=== PATIENT | male | born 1955 | race African-American/Black ===

== ENCOUNTER 2022-03-13 10:07 | Emergency (ER) | payer OTHER, SELFPAY ==
--- NOTE | 2022-03-13 | ECG_ITS ---
Test Reason : Chest Pain Blood Pressure : / mmHG Vent. Rate : 067 BPM Atrial Rate : 067 BPM P-R Int : 164 ms QRS Dur : 072 ms QT Int : 356 ms P-R-T Axes : 084 077 083 degrees QTc Int : 376 ms Normal sinus rhythm with sinus arrhythmia Normal ECG No previous ECGs available Referred By: Generic ED Physician Electronically Signed By:RAMBO LANDERS MD
--- NOTE | ~2022-03-13 | CT_ITS ---
EXAMINATION: CT CHEST WITHOUT CONTRAST CLINICAL INFORMATION: Abnormal chest x-ray. COMPARISON: Chest x-ray 03/13/2022. TECHNIQUE: Multidetector volumetric CT imaging of the chest was done. Axial MIP volume rendering provided. Sagittal and coronal reformatted images were obtained. This CT examination was performed using dose optimization techniques as appropriate, variously including the following: *Automated exposure control *Adjustment of mA and/or kV according to patient size (this includes techniques or standardized protocols for targeted exams where dose is matched to indication/reason for exam; i.e. extremities or head) *Use of iterative reconstruction technique DLP: 319 mGy-cm FINDINGS: SUPERVISOR REMELT: Well-expanded lungs with the right suprahilar hyperdense lesion/lymph nodes LUNGS: The lungs are well-expanded and clear of acute pneumonic process. There are no pulmonary nodules, mass or consolidation. There is a punctate 1 mm calcification right lower lobe axial image 324/9. No additional pulmonary nodules visualized. MEDIASTINUM: There are calcified suprahilar and hilar mediastinal lymph nodes. The largest suprahilar lymph node measures 3.73 cm on coronal image 37/6 and a 3 cm calcified lymph node right para-aortic axial image 30/6. No abnormal size noncalcified lymph nodes seen. Central trachea and the bronchi widely patent. The thyroid lobes are symmetrical. Heart size and the great vessels are normal caliber. No pericardial effusion seen. CORONARY ARTERY CALCIFICATION: There is mild coronary artery calcifications. PLEURA: There is no pleural effusion. No pleural mass or thickening. AXILLA: No abnormal size axillary lymph nodes seen. The chest wall is unremarkable. UPPER ABDOMEN: There is punctate calcification along the right hemidiaphragm. Otherwise liver, spleen, adrenal glands, pancreas appears unremarkable. There are punctate calcifications in the liver. There is a hypodense 2.2 cm cyst upper pole right kidney OSSEOUS STRUCTURES: No aggressive lytic or sclerotic process seen. CT/CT chest wo IV con IMPRESSION: 1. Calcified right suprahilar and mediastinal lymph nodes likely secondary to old granulomatous disease. 2. Punctate calcification right lower lobe and right hemidiaphragm. 3. No pulmonary nodule, mass or consolidation. 4. Mild coronary artery calcifications. 5. Right renal cyst. Fleischner guidelines were followed.
--- NOTE | ~2022-03-13 | XR_ITS ---
EXAMINATION: XR CHEST CLINICAL INFORMATION: Chest pain COMPARISON: None TECHNIQUE: Frontal view of the chest was obtained. FINDINGS: The lungs are well-expanded and clear of acute process. Heart size and pulmonary vascularity is normal. There are prominent hyperdense lymph nodes/lesion in the right para-aortic/mediastinal region. Is no gross bony abnormality seen. XR/XR chest 1V IMPRESSION: 1. No acute cardiopulmonary process seen. 2. Hyperdense lymph nodes/lesion in the right para-aortic/mediastinal region.
[2022-03-13 10:08] VITALS: BP 143/83; PULSE 88; RESP 16; TEMP 36.8; O2SAT 98; BMI 24.8
--- NOTE | 2022-03-13 10:41 | PC.NURSE ---
Patient AOx 4 neuros intact speaks in clear voice no slurring of words nfacial droop [place] with purpose no drift noted. Reports ongoing chest pain worse with movement. Patient reports chronic SOB. MD at bedside IV access and labs obtained . Patient placed on program officer, NSR. LS clear patient smokes daily 2-3 cigarettes will CTM
--- NOTE | 2022-03-13 10:44 | ED_ITS ---
HPI - Chest Pain General Chief Complaint: Chest Pain Stated Complaint: chest pain Time Seen by Provider: 03/13/22 10:28 Source: patient and family Mode of arrival: ambulatory Limitations: no limitations History of Present Illness HPI narrative: 66-year-old male came in for evaluation of chest pain that started 3 weeks ago. Started about 3 weeks ago with stabbing sharp pain to the left side of the chest now the pain moved to the right side of the chest pain started as intermittent severe pain 10/10 mostly now really localized to the right side of the chest, worsening with movement or turning his body a certain way also with taking a deep breath and holding it in, no recent travel, no recent prolonged immob ilization, no lower extremity swelling or tenderness, no history of PE or DVT. No trauma to the chest. Patient has been coughing with thick white sputum for the past week, overall patient to not feel sick or flu-like symptoms. Patient actively smoke 2-3 cigarettes a day a decline using drugs or alcohol. Related Data Allergies Allergy/AdvReac Type Severity Reaction Status Date / Time No Known Allergies Allergy Verified 03/13/22 10:08 Review of Systems Review of Systems: All other systems are reviewed and are negative Constitutional: Reports as per HPI and Reports no additional constitutional complaints Eyes: Reports as per HPI and Reports no additional eye complaints Reports system reviewed and no additional complaints, except as documented Cardiovascular: Reports as per HPI and Reports no additional cardiovascular complaints Respiratory: Reports as per HPI and Reports no additional respiratory complaints Gastrointestinal: Reports as per HPI and Reports no additional gastrointestinal complaints Genitourinary: Reports no additional female genitourinary complaints Musculoskeletal: Reports no additional musculoskeletal complaints Skin/Breast: Reports system reviewed and no additional complaints, except as docu Psychiatric: Reports no additional psychiatric complaints Endocrine: Reports no additional endocrine complaints Hematologic/Lymphatic: Reports no additional hematologic/lymphatic complaints Allergic/Immunologic: Reports no additional allergic/immunologic complaints Reports system reviewed and no additional complaints, except as documented and Reports Abnormal speech present. [facility] Social History Social History Alcohol intake: unknown Smoked in Last 30 Days: Yes Use of substances other than those prescribed or required for medical reasons: No Advance Directives: No Physical Exam Vital Signs: Vital Signs: Last Vital Signs Temp 97.8 F 03/13/22 14:29 Pulse 67 03/13/22 14:29 Resp 18 03/13/22 14:29 BP 133/82 03/13/22 14:29 Pulse Ox 100 03/13/22 14:29 O2 Del Method 03/13/22 14:29 BMI result Body Mass Index 24.8 Vital signs have been reviewed as appeared to be correct. Blood pressure normal. Heart rate normal. Respiration rate normal. Temperature normal. Oxygen saturation normal. Appearance: Alert. Oriented X3. No acute distress. Head: Normal external exam. Normocephalic. Atraumatic. No Fagan signs noted. No raccoon eyes noted Eyes: PERRLA. EOMI. Conjunctiva and sclera normal. Eyelids normal. ENT: TM's Normal. Pharynx normal. Uvula midline. Moist mucous membranes. No trismus noted. No drooling noted. No muffled voice noted. Neck: Normal inspection. Neck supple. FROM. No adenopathy. Thyroid Normal. No meningeal signs. No neck mass noted. CVS: Normal heart rate and rhythm. Heart sound normal. No murmurs noted. Pulses normal throughout. Respiratory: No respiratory distress. Painless inspiration. Breath sounds normal. No wheezes/rales/rhonchi noted. Chest nontender. No accessory muscle usage noted or decreased air movement noted. Abdomen: Soft and nontender. Bowel sounds normal in all 4 quadrants. No distention noted. No organomegaly noted. No visible injury noted. Back: No CVA tenderness. Full range of motion noted. Skin: Skin warm and dry. Normal skin color. Normal skin turgor. No rashes/lesions/lacerations noted. Extremities: No lower extremity edema. Extremities exhibit normal range of motion. Extremities nontender. Neuro: Oriented X 3. Cranial nerve exam: II-XII are grossly intact No motor deficit. No sensory deficit. Reflexes normal. Course Course Course Narrative: 66-year-old male with pleuritic chest pain for the past 3 weeks, unremarkable workup for cardiopulmonary disease. Physical exam and history is consistent with pleurisy was recommended to take NSAIDs if needed for pain. Medical Decision Making Differential Diagnosis Differential Diagnoses: The differential diagnosis associated with the presentation includes (Pleurisy, ACS, pulmonary embolism, pneumonia, pneumothorax.) Lab Data MDM Lab Attestation statement: I reviewed the patient's lab results. 03/13/22 10:44 03/13/22 10:44 Labs: Lab Results 03/13/22 03/13/22 03/13/22 Range/Units 10:44 10:44 10:44 WBC 6.8 (4.8-10.8) X10*3/uL RBC 4.09 L (4.60-5.80) X10*6/uL Hgb 12.3 L (14.0-18.0) g/dl Hct 37.0 L (42.0-52.0) % MCV 90.5 (80.0-98.0) fL MCH 30.1 (27.0-33.0) pg MCHC 33.2 (31.0-36.0) g/dl RDW 14.6 (11.0-16.0) % Plt Count 240 (160-400) X10*3/uL MPV 10.1 (9.4-12.4) fL Immature Gran % (Auto) 0.3 (0.0-0.4) % Neut % (Auto) 64.4 (45-73) % Lymph % (Auto) 18.4 L (20-40) % Bulloch % (Auto) 10.8 (2-11) % Eos % (Auto) 5.4 H (0-4) % Baso % (Auto) 0.7 (0-2) % Lymph # (Auto) 1.3 (1.2-4.9) X10*3/uL Bulloch # (Auto) 0.7 (0.1-1.2) X10*3/uL Eos # (Auto) 0.4 (0.0-0.4) X10*3/uL Baso # (Auto) 0.1 (0.0-0.2) X10*3/uL Abs Immat Gran (auto) 0.02 (0.00-0.03) X10*3/uL Absolute Neuts (auto) 4.4 (2.0-8.3) x10*3/uL Absolute Nucleated RBC 0.000 (0.0-0.012) X10*3/uL Nucleated RBC % (auto) 0.0 (0.0-0.2) /100WBC D-Dimer High Sensitivty NG/ML Sodium 138 (135-145) mmol/L Potassium 4.4 (3.3-5.1) mmol/L Chloride 103 (96-108) mmol/L Carbon Dioxide 27 (22-29) mmol/L Anion Gap 12 (12-20) BUN 9 (9-16) mg/dL Creatinine 1.18 (0.5-1.4) mg/dL Estim Creat Clear Calc 64.6 Estimated GFR > 60 Random Glucose 96 (60-115) mg/dL Calcium 9.3 (8.4-10.2) mg/dL Troponin I High Sens < 3.5 (<3.5-35.0) ng/L 03/13/22 Range/Units 10:52 WBC (4.8-10.8) X10*3/uL RBC (4.60-5.80) X10*6/uL Hgb (14.0-18.0) g/dl Hct (42.0-52.0) % MCV (80.0-98.0) fL MCH (27.0-33.0) pg MCHC (31.0-36.0) g/dl RDW (11.0-16.0) % Plt Count (160-400) X10*3/uL MPV (9.4-12.4) fL Immature Gran % (Auto) (0.0-0.4) % Neut % (Auto) (45-73) % Lymph % (Auto) (20-40) % Bulloch % (Auto) (2-11) % Eos % (Auto) (0-4) % Baso % (Auto) (0-2) % Lymph # (Auto) (1.2-4.9) X10*3/uL Bulloch # (Auto) (0.1-1.2) X10*3/uL Eos # (Auto) (0.0-0.4) X10*3/uL Baso # (Auto) (0.0-0.2) X10*3/uL Abs Immat Gran (auto) (0.00-0.03) X10*3/uL Absolute Neuts (auto) (2.0-8.3) x10*3/uL Absolute Nucleated RBC (0.0-0.012) X10*3/uL Nucleated RBC % (auto) (0.0-0.2) /100WBC D-Dimer High Sensitivty < 150 NG/ML Sodium (135-145) mmol/L Potassium (3.3-5.1) mmol/L Chloride (96-108) mmol/L Carbon Dioxide (22-29) mmol/L Anion Gap (12-20) BUN (9-16) mg/dL Creatinine (0.5-1.4) mg/dL Estim Creat Clear Calc Estimated GFR Random Glucose (60-115) mg/dL Calcium (8.4-10.2) mg/dL Troponin I High Sens (<3.5-35.0) ng/L Independent Interpretation I performed an independent interpretation of an: Plain X-Ray (No acute intra thoracic pathology.) and CT Scan (Chest:1. Calcified right suprahilar and mediastinal lymph nodes likely secondary to old granulomatous disease. 2. Punctate calcification right lower lobe and right hemidiaphragm. 3. No pulmonary nodule, mass or consolidation. 4. Mild coronary artery calcificatio ns. 5. Right renal cyst. ) Radiology Impression Discussion of test interpretation with radiology: I have reviewed the radiologist's reading. Discharge Plan Discharge Clinical Impression: Pleurisy Patient Disposition: Home, Self-Care Instructions: Pleurisy (ED) Additional Instructions: Take [id number] ibuprofen 200 mg tablet every 6 hours if needed for pain.
[2022-03-13 10:49] LABS: MANUAL DIFF FLAG NO
[2022-03-13 10:51] LABS: Basophils Absolute Auto 0.1 X10*3/uL (0.0-0.2); Basophils Percent Auto 0.7 % (0-2); Eosinophils Absolute Auto 0.4 X10*3/uL (0.0-0.4); Eosinophils Percent Auto 5.4 % (0-4); Hemoglobin 12.3 g/dl (14.0-18.0); Imm Gran Abs Auto 0.02 X10*3/uL (0.00-0.03); Imm Gran Pct Auto 0.3 % (0.0-0.4); Lymphocytes Absolute Auto 1.3 X10*3/uL (1.2-4.9); Lymphocytes Percent Auto 18.4 % (20-40); Mean Corpuscular HGB Conc 33.2 g/dl (31.0-36.0); Mean Corpuscular Hemoglobin 30.1 pg (27.0-33.0); Mean Corpuscular Volume 90.5 fL (80.0-98.0); Mean Platelet Volume 10.1 fL (9.4-12.4); Monocytes Absolute Auto 0.7 X10*3/uL (0.1-1.2); Monocytes Percent Auto 10.8 % (2-11); Neutrophils Absolute Auto 4.4 x10*3/uL (2.0-8.3); Neutrophils Percent Auto 64.4 % (45-73); Platelet Count 240 X10*3/uL (160-400); Red Blood Count 4.09 X10*6/uL (4.60-5.80); Red Cell Distribution Width 14.6 % (11.0-16.0); White Blood Count 6.8 X10*3/uL (4.8-10.8)
[2022-03-13 11:05] LABS: D Dimer High Sensitivity < 150 NG/ML
[2022-03-13 11:11] LABS: Anion Gap 12 (12-20); Blood Urea Nitrogen 9 mg/dL (9-16); Calcium 9.3 mg/dL (8.4-10.2); Carbon Dioxide 27 mmol/L (22-29); Chloride 103 mmol/L (96-108); Creatinine Clr Calc Pharmacy 64.6; Estimated Glomerular Filt Rate > 60; Glucose Random 96 mg/dL (60-115); Potassium 4.4 mmol/L (3.3-5.1); Sodium 138 mmol/L (135-145)
[2022-03-13 11:17] LABS: Troponin-I High Sensitivity < 3.5 ng/L (<3.5-35.0)
--- NOTE | 2022-03-13 12:03 | PC.NURSE ---
Patient resting comfortably no distress noted will CTM
[2022-03-13 12:24] VITALS: BP 129/81; PULSE 61; RESP 16; O2SAT 99
[2022-03-13 12:57] VITALS: BP 134/76; PULSE 61; RESP 13; TEMP 37.1; O2SAT 100
--- NOTE | 2022-03-13 13:46 | PC.NURSE ---
notified gini asking for pain meds awaiting orders
[2022-03-13 14:29] VITALS: BP 133/82; PULSE 67; RESP 18; TEMP 36.6; O2SAT 100
[2022-03-13] MEDS: Morphine Sulfate 2 MG/ML CARTRIDGE 1 MG IVPUSH (14:51)
[2022-03-13] MEDS: Ketorolac Tromethamine 30 MG/ML VIAL IVPUSH (14:51)
[2022-03-13 14:56] VITALS: BP 118/99; PULSE 61; RESP 18; O2SAT 99
== END 2022-03-13 15:07 | disposition home or self-care (01) ==
PROVIDERS: Emergency Provider Emergency Medicine
DX: R09.1 Pleurisy (principal); R07.89 Other chest pain; M54.6 Pain in thoracic spine; F17.210 Nicotine dependence, cigarettes, uncomplicated; Z79.899 Other long term (current) drug therapy; Z71.6 Tobacco abuse counseling
CPT/HCPCS: 36415; 71045; 71250; 80048; 84484; 85025; 85379; 93005; 96374; 96375; 99284; 99285; J1885; J2270

== ENCOUNTER 2022-08-01 06:17 | Emergency (ER) | payer OTHER, SELFPAY ==
--- NOTE | ~2022-08-01 | XR_ITS ---
EXAMINATION: XR CHEST CLINICAL INFORMATION: Acute chest pain COMPARISON: Chest radiograph 03/13/[address] chest from the same day TECHNIQUE: 2 views of the chest were obtained. FINDINGS: Cardiomediastinal silhouette is stable with similar appearance to the bulky calcified lymph nodes in the right suprahilar/paratracheal station. Clear lungs without consolidation, pleural effusion or pneumothorax. No acute osseous abnormalities. XR/XR chest 2V IMPRESSION: 1. No acute cardiopulmonary process. 2. Unchanged bulky calcified lymph nodes in the right suprahilar/paratracheal station.
--- NOTE | 2022-08-01 07:04 | ECG_ITS ---
Test Reason : r shldr/neck pain Blood Pressure : / mmHG Vent. Rate : 056 BPM Atrial Rate : 056 BPM P-R Int : 166 ms QRS Dur : 072 ms QT Int : 392 ms P-R-T Axes : 077 059 071 degrees QTc Int : 378 ms Sinus bradycardia Otherwise normal ECG When compared with ECG of 13-MAR-2022 10:22, No significant change was found Referred By: Generic ED Physician Electronically Signed By:Brain Ivey
[2022-08-01 07:09] VITALS: BP 147/99; PULSE 87; RESP 18; TEMP 36.6; O2SAT 99; BMI 24.8
[2022-08-01 07:26] LABS: MANUAL DIFF FLAG NO
[2022-08-01 07:31] LABS: Basophils Absolute Auto 0.1 X10*3/uL (0.0-0.2); Basophils Percent Auto 0.8 % (0-2); Eosinophils Absolute Auto 0.3 X10*3/uL (0.0-0.4); Eosinophils Percent Auto 4.2 % (0-4); Hematocrit 43.4 % (42.0-52.0); Hemoglobin 14.2 g/dl (14.0-18.0); Imm Gran Abs Auto 0.02 X10*3/uL (0.00-0.03); Imm Gran Pct Auto 0.3 % (0.0-0.4); Lymphocytes Absolute Auto 1.1 X10*3/uL (1.2-4.9); Lymphocytes Percent Auto 14.3 % (20-40); Mean Corpuscular HGB Conc 32.7 g/dl (31.0-36.0); Mean Corpuscular Volume 91.6 fL (80.0-98.0); Mean Platelet Volume 10.7 fL (9.4-12.4); Monocytes Absolute Auto 0.6 X10*3/uL (0.1-1.2); Monocytes Percent Auto 8.1 % (2-11); Neutrophils Absolute Auto 5.3 x10*3/uL (2.0-8.3); Neutrophils Percent Auto 72.3 % (45-73); Platelet Count 237 X10*3/uL (160-400); Red Blood Count 4.74 X10*6/uL (4.60-5.80); White Blood Count 7.3 X10*3/uL (4.8-10.8)
[2022-08-01 07:34] LABS: Appearance Urine Clear; Color Urine Yellow; Glucose Urine UA Negative (Negative); Leukocyte Esterase Urine Negative (Negative); Nitrite Urine Negative (Negative); Urine Blood Negative (Negative); Urine Ketones Negative (Negative); Urine Protein Negative (Neg-Trace)
[2022-08-01 07:53] LABS: Anion Gap 13 (12-20); Blood Urea Nitrogen 9 mg/dL (9-16); Calcium 9.5 mg/dL (8.4-10.2); Carbon Dioxide 29 mmol/L (22-29); Chloride 104 mmol/L (96-108); Creatinine Clr Calc Pharmacy 68.7; Estimated Glomerular Filt Rate > 60; Glucose Random 80 mg/dL (60-115); Potassium 4.5 mmol/L (3.3-5.1); Sodium 141 mmol/L (135-145)
[2022-08-01 08:02] LABS: Troponin-I High Sensitivity < 2.7 ng/L (<3.5-35.0)
--- NOTE | 2022-08-01 09:07 | ED_ITS ---
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 Patient reports pain is worsened if he moves the arm or head. not worsened with exertion. no associated shortness of breath, chest pain, fevers, cough, dizziness, headache, abdominal pain, vomiting, diarrhea, numbness or tingling, Night sweats or weight loss. Patient denies any known injury or trauma. Patient did not try any [id number] medications for the pain before coming to the emergency room. Related Data Previous Rx's Medication Instructions Recorded cyclobenzaprine 10 mg tablet 10 mg PO TID PRN muscle spasm #14 08/01/22 tabs lidocaine 5 % topical patch 1 patch topical DAILY #30 ea 08/01/22 (Lidoderm) Allergies Allergy/AdvReac Type Severity Reaction Status Date / Time No Known Allergies Allergy Verified 03/13/22 10:08 Review of Systems Review of Systems: Yes all other systems are reviewed and are negative Constitutional: Constitutional: Reports no additional constitutional complaints, Denies body ache(s), Denies chills, Denies fever(s), Denies headache(s), Denies night sweats, Denies weakness and Denies weight loss Eyes: Eyes: Reports no additional eye complaints and Denies change in vision ENT: Reports system reviewed and no additional complaints, except as documented, Denies dizziness, Denies headache(s), Denies nasal congestion, Denies nasal discharge and Reports neck pain Cardiovascular: Cardiovascular: Reports no additional cardiovascular complai nts, Denies chest pain, Denies leg edema and Denies dyspnea Respiratory: Respiratory: Reports no additional respiratory complaints, Denies cough and Denies dyspnea Gastrointestinal: Gastrointestinal: Reports no additional gastrointestinal complaints, Denies abdominal pain, Denies diarrhea, Denies nausea and Denies vomiting Genitourinary: Genitourinary: Denies urinary incontinence Musculoskeletal: Musculoskeletal: Reports no additional musculoskeletal complaints, Denies back pain, Reports arthralgias, Denies joint swelling, Reports neck pain, Denies numbness and Denies tingling Integumentary/Breasts: Skin/Breast: Reports system reviewed and no additional complaints, except as docu and Denies rash Neurologic: Reports system reviewed and no additional complaints, except as documented, Denies dizziness, Denies headache(s), Denies numbness, Denies tingling and Denies weakness [facility] Past Medical History Attestation statement: The following information was validated with the patient. Source: old records reviewed and nursing notes reviewed Social History Social History Alcohol intake: unknown Advance Directives: No Advance Directives Information Provided: Yes Physical Exam ED Vital Signs: Vital Signs - 24 hr 08/01/22 07:09 Temperature 97.8 F Pulse Rate 87 Respiratory Rate 18 Blood Pressure 147/99 H Pulse Oximetry 99 Oxygen Delivery Method Room Air BMI result Body Mass Index 24.8 Const General: cooperative, healthy appearing, comfortable and no acute distress Orientation/consciousness: patient oriented x3 Limitations: no limitations HENMT Head: Yes normal to inspection Ears: hearing grossly normal bilaterally and TM's normal bilaterally Eyes General: appearance normal, both eyes and all related structures Pupils: Equal, round and reactive pupils present Neck Other: there is tenderness to the right trapezius which is worsened with compression with palpable muscle spasm. No tenderness over the soft tissue of the neck or the cervical mid spine. No step-offs or deformities noted. Full range of motion of the neck. There is pain with lateral rotation of the head. Neck: Yes normal visual inspection, Yes full ROM, Yes no lymphadenopathy and Yes no meningeal signs Chest Chest palpation & inspection: normal inspection of the chest Resp Effort & Inspection: normal respiratory effort Auscultation: clear to auscultation bilaterally Cardio Rate: regular rate Rhythm: regular rhythm Peripheral pulses: Peripheral pulses 2+ throughout GI Inspection: Yes normal to inspection Palpation (GI): Soft to palpation and nontender General: Yes no CVA tenderness Back/Spine/Pelvis Back: no CVA tenderness Thoracic/Lumbar Spine: thoracic and lumbar spine normal to inspection Skin General skin exam: no rashes or lesions noted Neuro General: patient oriented x3, moves all extremities and no meningeal signs Cranial nerves: Yes CN's II-XII intact bilaterally, Yes Equal, round and reactive pupils present, Yes Bilaterally intact EOM present, Yes Nystagmus not present, Yes Normal facial strength present and Yes Midline tongue present Cognition (Neuro): normal cognition Gait exam (Neuro): Normal gait present Motor exam (neuro): 5/5 motor strength present throughout Sensory Exam: Normal double simultaneous stimulation for sensation Extrem Other: there is no palpable tenderness over the shoulder or proximal humerus. There is full range of motion of the right shoulder with no difficulty. General: Yes normal to inspection, Yes no pedal edema and Yes no calf tenderness Course Course Course Narrative: workup including labs, chest x-ray and EKG are normal. exam is more consistent with musculoskeletal cause likely muscle spasm. patient will be discharged home with Flexeril, Lidoderm patches. I did review worrisome signs and symptoms with the patient and his girlfriend with recommendations to return for any worsening signs or symptoms. Patient should follow-up with his primary care doctor for any persistent symptoms. Medical Decision Making Medical Decision Making [facility] Narrative: This is a 66-year-old male who presents to the ER with complaints of atraumatic right-sided neck pain with radiation to the right shoulder which began at 01:00 this morning. There are no associated symptoms. Patient has a normal neurological exam. There is no neurological deficits or red flag symptoms. There is no midline tenderness over the cervical spine, lymphadenopathy, Or meningeal signs. pain seems more musculoskeletal on exam with palpable muscle spasm noted. Patient had labs, EKG, chest x-ray ordered from triage Differential Diagnosis Differential Diagnoses: The differential diagnosis associated with the presentation includes low concern for ACS with nonexertional symptoms with a normal troponin and EKG low concern for PE- no clinical findings concerning for DVT, no hypoxia/tachypnea/tachycardia. no complaints of shortness of breath, cough for fever. denies recent travel. denies history of DVT or PE or family history of same low concern for aortic dissection I considered carotid dissection but less likely with normal neuro exam, no palpable tenderness over the soft tissue of the neck, no thrill or bruit low concern for malignancy, epidural abscess- denies weight loss, night sweats/ normal neuro Lab Data MDM Lab Attestation statement: I reviewed the patient's lab results. 08/01/22 07:19 08/01/22 07:19 Labs: Lab Results 08/01/22 08/01/22 08/01/22 Range/Units 07:19 07:19 07:19 WBC 7.3 (4.8-10.8) X10*3/uL RBC 4.74 (4.60-5.80) X10*6/uL Hgb 14.2 (14.0-18.0) g/dl Hct 43.4 (42.0-52.0) % MCV 91.6 (80.0-98.0) fL MCH 30.0 (27.0-33.0) pg MCHC 32.7 (31.0-36.0) g/dl RDW 15.0 (11.0-16.0) % Plt Count 237 (160-400) X10*3/uL MPV 10.7 (9.4-12.4) fL Immature Gran % (Auto) 0.3 (0.0-0.4) % Neut % (Auto) 72.3 (45-73) % Lymph % (Auto) 14.3 L (20-40) % [place] % (Auto) 8.1 (2-11) % Eos % (Auto) 4.2 H (0-4) % Baso % (Auto) 0.8 (0-2) % Lymph # (Auto) 1.1 L (1.2-4.9) X10*3/uL [place] # (Auto) 0.6 (0.1-1.2) X10*3/uL Eos # (Auto) 0.3 (0.0-0.4) X10*3/uL Baso # (Auto) 0.1 (0.0-0.2) X10*3/uL Abs Immat Gran (auto) 0.02 (0.00-0.03) X10*3/uL Absolute Neuts (auto) 5.3 (2.0-8.3) x10*3/uL Absolute Nucleated RBC 0.000 (0.0-0.012) X10*3/uL Nucleated RBC % (auto) 0.0 (0.0-0.2) /100WBC Sodium 141 (135-145) mmol/L Potassium 4.5 (3.3-5.1) mmol/L Chloride 104 (96-108) mmol/L Carbon Dioxide 29 (22-29) mmol/L Anion Gap 13 (12-20) BUN 9 (9-16) mg/dL Creatinine 1.11 (0.5-1.4) mg/dL Estim Creat Clear Calc 68.7 Estimated GFR > 60 Random Glucose 80 (60-115) mg/dL Calcium 9.5 (8.4-10.2) mg/dL Troponin I High Sens < 2.7 (<3.5-35.0) ng/L Urine Color Urine Appearance Urine pH (5.0-9.0) Ur Specific Ernest (1.005-1.025) Urine Protein (Neg-Trace) mg/dL Urine Glucose (UA) (Negative) mg/dL Urine Ketones (Negative) mg/dL Urine Blood (Negative) Urine Nitrite (Negative) Ur Leukocyte Esterase (Negative) 08/01/22 Range/Units 07:27 WBC (4.8-10.8) X10*3/uL RBC (4.60-5.80) X10*6/uL Hgb (14.0-18.0) g/dl Hct (42.0-52.0) % MCV (80.0-98.0) fL MCH (27.0-33.0) pg MCHC (31.0-36.0) g/dl RDW (11.0-16.0) % Plt Count (160-400) X10*3/uL MPV (9.4-12.4) fL Immature Gran % (Auto) (0.0-0.4) % Neut % (Auto) (45-73) % Lymph % (Auto) (20-40) % [place] % (Auto) (2-11) % Eos % (Auto) (0-4) % Baso % (Auto) (0-2) % Lymph # (Auto) (1.2-4.9) X10*3/uL [place] # (Auto) (0.1-1.2) X10*3/uL Eos # (Auto) (0.0-0.4) X10*3/uL Baso # (Auto) (0.0-0.2) X10*3/uL Abs Immat Gran (auto) (0.00-0.03) X10*3/uL Absolute Neuts (auto) (2.0-8.3) x10*3/uL Absolute Nucleated RBC (0.0-0.012) X10*3/uL Nucleated RBC % (auto) (0.0-0.2) /100WBC Sodium (135-145) mmol/L Potassium (3.3-5.1) mmol/L Chloride (96-108) mmol/L Carbon Dioxide (22-29) mmol/L Anion Gap (12-20) BUN (9-16) mg/dL Creatinine (0.5-1.4) mg/dL Estim Creat Clear Calc Estimated GFR Random Glucose (60-115) mg/dL Calcium (8.4-10.2) mg/dL Troponin I High Sens (<3.5-35.0) ng/L Urine Color Yellow Urine Appearance Clear Urine pH 7.0 (5.0-9.0) Ur Specific Ernest 1.010 (1.005-1.025) Urine Protein Negative (Neg-Trace) mg/dL Urine Glucose (UA) Negative (Negative) mg/dL Urine Ketones Negative (Negative) mg/dL Urine Blood Negative (Negative) Urine Nitrite Negative (Negative) Ur Leukocyte Esterase Negative (Negative) Independent Interpretation I performed an independent interpretation of an: EKG and Plain X-Ray Interpretation: I independetely reviewed the EKG which shows SB with rate , normal pr, normal qrs, normal qt I independently reviewed the chest x-ray and agree with radiologist's report Radiology Impression Discussion of test interpretation with radiology: I have reviewed the radiologist's reading. Radiologist Impression: [place] [id number] XRay Report Signed Patient: Brian Rivera MR#: [id number] : 1955 Acct:[id number] Age/Sex: 66 / M ADM Date: 08/01/22 Loc: HO.ED Attending Dr: Ordering Physician: Ge Elmore MD Date of Service: 08/01/22 Procedure(s): XR chest 2V Accession Number(s): [id number] cc: Ge Elmore MD~ EXAMINATION: XR CHEST CLINICAL INFORMATION: Acute chest pain COMPARISON: Chest radiograph 03/13/[address] chest from the same day TECHNIQUE: 2 views of the chest were obtained. FINDINGS: Cardiomediastinal silhouette is stable with similar appearance to the bulky calcified lymph nodes in the right suprahilar/paratracheal station. Clear lungs without consolidation, pleural effusion or pneumothorax. No acute osseous abnormalities. XR/XR chest 2V IMPRESSION: 1.? No acute cardiopulmonary process. 2.? Unchanged bulky calcified lymph nodes in the right suprahilar/paratracheal station. Independent Historian Clinical information obtained from an independent historian. History obtained from or confirmed by: Spouse (girlfriend tri) Discharge Plan Discharge Clinical Impression: Muscle spasm Patient Disposition: Home, Self-Care Instructions: Muscle Spasm (ED) Additional Instructions: Apply heat to the area Gentle stretching You may also take [id number] Motrin or Tylenol if able as needed for continued symptoms Return for worsening pain, fever, shortness of breath, leg swelling or leg pain, night sweats, weight loss Follow-up with primary care doctor for any persistent symptoms Prescriptions: New cyclobenzaprine 10 mg tablet 10 mg PO TID PRN (Reason: muscle spasm) Qty: 14 0RF lidocaine [Lidoderm] 5 % adhesive patch,medicated 1 patch topical DAILY Qty: 30 0RF Rx Instructions: leave on most painful area for up to 12 hrs Referrals: Physician,Unknown J [Primary Care Provider] - 1 week (PCP as needed) Interventions: ED Discharge Assessment Last Done: 08/01/22 09:35 Discharge Date/Time: 08/01/22 09:36
== END 2022-08-01 09:36 | disposition home or self-care (01) ==
PROVIDERS: Emergency Provider Emergency Medicine
DX: M62.838 Other muscle spasm (principal); M54.2 Cervicalgia
CPT/HCPCS: 36415; 71046; 80048; 81003; 84484; 85025; 93005; 99283